=== PATIENT | female | born 1995 | race Caucasian/White ===

== ENCOUNTER 2023-08-18 13:26 | Outpatient (CLI) | payer OTHER, SELFPAY ==
[2023-08-18 13:48] LABS: Hematocrit 41.3 % (37.0-47.0); Hemoglobin 14.3 g/dL (12.0-15.0)
== END 2023-08-18 13:27 | disposition home or self-care (01) ==
LOC: ANHSURGERY 13:32
PROVIDERS: Visit Provider Student in an Organized Health Care Education/Training Program
DX: N87.9 Dysplasia of cervix uteri, unspecified (principal); Z01.818 Encounter for other preprocedural examination
CPT/HCPCS: 36415; 85014; 85018

== ENCOUNTER 2023-08-20 01:11 | Day surgery (SDC) | payer OTHER, SELFPAY ==
--- NOTE | 2023-08-17 13:13 | PC.NURSE ---
Addendum entered by Cara Roche RN 08/18/23 12:35: Surgery time is 1:30pm, not 1:00pm Original Note: Report to the Outpatient Waiting Room, entrance under the [facility] located off [facility], at time __1130 on date __08/20/23 . Planned Procedure Time: _1:00 PM . Time changes happen often and if your time is changed the preop area will call you the afternoon before. - You and your visitor will be asked to self-screen and do not enter if you have any COVID symptoms. - A mask is optional within the hospital at this time. Patients may have clear liquids (water, carbonated beverages, clear teas, apple juice) until 3 hours prior to surgery with a maximum of 20 ounces. - No food from midnight until time of surgery - Infants may have breast milk until 4 hours before surgery, formula 6 hours prior to surgery. - Children will be allowed to drink immediately following surgery. If applicable, please bring a bottle or sippy cup to assist with drinking. Juice, water, soda, and popsicles are readily available. For infants on formula, please bring formula the day of surgery. Pacifiers are allowed. Take the following medications with a SIP of water the morning of surgery: ____NONE DO NOT STOP ANY OF YOUR OTHER PRESCRIPTION MEDICATIONS PRIOR TO SURGERY ?EXCEPT THE FOLLOWING Medications to discontinue per physician NONE Please no make-up, nail british, hairspray, perfume, deodorant, or body powder the day of surgery. No jewelry (including any body piercings) or valuables the day of surgery, leave them at home. Please take a shower or bath the night before, or the morning of, surgery with an antibacterial soap. Wear comfortable, loose fitting clothing. Children are encouraged to wear pajamas. - Jewelry must be removed prior to entering the operating room. Rings and piercings that are not removed may be cut off. - The hospital will not accept responsibility for valuables. - Please leave all valuables, including medications, at home the day of surgery. If you are going home after surgery, a licensed experienced truck driver must drive you home. - NO public transportation without another adult if you receive anesthesia. - We recommend that an adult stay with you for 24 hours following discharge. - We also recommend that you do not drive, make important decision, drink alcoholic beverages, or take any drugs that were not prescribed by your health care provider for at least 24 hours after your discharge time. For Pediatric surgeries, we recommend two adults accompany the child home. Follow any additional instructions given to you from your surgeon. If you or anyone in your household have experienced Covid symptoms in the past week, please notify your surgeon or the nurse liaison at the phone number below for possible testing. Telephone instructions given to _PATIENT and asked if any additional questions and then verbalized understanding. Patient advised to call surgeon office or pre surgery nurse liaison [phone] if any additional questions.
[2023-08-17 13:21] VITALS: BMI 22.2
--- NOTE | 2023-08-20 08:35 | PM.IMHP ---
H&P: HPI History of Present Illness Date/Time: 08/20/23 08:35 Chief Complaint: TRACY 2 Retained IUD Narrative: 28-year-old female who presents for LEEP. Patient's initial Pap smear came back LSIL, positive HPV.? Patient underwent colposcopy.? ECC was benign but cervical biopsy returned high-grade TRACY 2. Patient also currently has IUD in place. Patient is requesting IUD removal. Removal was attempted in office but was unsuccessful. Will plan for hysteroscopic removal of IUD at the time of LEEP. Review of Systems Cardiovascular: Cardiovascular: Denies chest pain, Denies leg edema, Denies palpitations, Denies dyspnea and Denies dyspnea on exertion Respiratory: Respiratory: Denies cough, Denies dyspnea and Denies dyspnea on exertion Gastrointestinal: Gastrointestinal: Denies abdominal pain, Denies constipation, Denies diarrhea, Denies nausea and Denies vomiting Genitourinary: Genitourinary: Denies hematuria, Denies urinary frequency, Denies dysuria, Denies pelvic pain, Denies urinary incontinence and Denies vaginal discharge Neurologic: Reports system reviewed and no additional complaints, except as documented Psychiatric: Psychiatric: Reports no additional psychiatric complaints Endocrine: Endocrine: Denies palpitations PMFSH Past Medical History Medical History (Updated 08/18/23 @ 16:11 by JUDI Galvan) Abnormal Pap smear of cervix Anemia Anxiety Bipolar 2 disorder Depression Encounter for IUD removal Surgical History Surgical History (Updated 08/18/23 @ 16:16 by JUDI Galvan) H/O colposcopy with cervical biopsy H/O gynecological procedure 09/08/17 Mirena IUD insertion History of gynecological procedure (08/18/23) mirena iud removal Family History Family History (Updated 07/14/23 @ 16:21 by Abi Mckinnon MA) Father Cerebrovascular accident Mother Breast cancer Grandparent Liver cancer Esophagus cancer Social History Social History (Updated 08/10/23 @ 14:13 by Amy Roblse CMA) Smoking packs per day: 0.5 Smoking cigarettes per day: 10.0 Years smoked: 10 Smoking pack-years: 5.00 Smoking status: Former smoker Tobacco type: cigarettes Smoking end date: 07/08/23 Additional smoking assessment comments: CURRENTLY VAPS Alcohol intake: current Substance use: current Substance use type: marijuana Last use: 08/16/23 Lack of Transportation: No Lack of Food: Never True Current Housing: I Have Housing Concerned About Future Housing: No Difficulty Paying Gas/Electric Bills: No Difficulty Paying for Meds: No Currently Unemployed: No Education: High School Diploma/GED Difficulty w/ Childcare or Family Care: No Living arrangements: with family Occupation/Education: occupation Gender identity (if verbalized by the patient): Female Spiritual care concerns: No Meds Home Medications and Allergies Home Medications Medication Instructions Recorded Confirmed Type No Home Medications 08/17/23 08/18/23 History Allergies Allergy/AdvReac Type Severity Reaction Status Date / Time amoxicillin Allergy Intermediate RASH Verified 08/18/23 16:08 Penicillins Allergy Intermediate RASH Verified 08/18/23 16:08 Exam Const: General: no acute distress Eyes: EOM: EOMs intact bilaterally Neck: Neck: supple Thyroid: thyroid normal Chest: Breast/axilla inspection: normal inspection of the breasts Breast/axilla palpation: normal palpation of the breasts, normal palpation of the axillae and no axillary lymphadenopathy Resp: Effort & Inspection: normal respiratory effort Auscultation: clear to auscultation bilaterally Cardio: Rate: regular rate Rhythm: regular rhythm GI: Inspection: non-distended GI Palp: Yes Soft to palpation, No Tenderness to palpation present (GI) and No Guarding due to palpation present (GI) Auscultation: normal bowel sounds : General: No bladder normal to palpation External Female Exam: normal exte
--- NOTE | 2023-08-20 08:38 | WPDHPUPDATE1 ---
History and Physical Update Update Date/Time: 08/20/23 08:38 History and Physical has been reviewed, including an updated exam of the patient. There are NO changes in the patient's condition. Risks, benefits, and alternatives have been discussed and questions answered. Patient agrees to proceed with procedure.
[2023-08-20] MEDS: ACETAMINOPHEN 500 MG TABLET 1000 MG PO (11:55)
[2023-08-20 12:08] VITALS: BP 119/86; PULSE 85; RESP 16; TEMP 37.7; O2SAT 99
[2023-08-20] MEDS: LACTATED RINGERS 1,000 ML 30 ML IV CONT (12:11)
--- NOTE | 2023-08-20 12:13 | WPDANESEPPF ---
Anes - Initial Pre Proc Eval Procedure: Operation Date: 08/20/23 13:30 Proposed Procedures p Loop Electrical Excision Procedure - Joo Do MD s Hysteroscopy with Intrauterine Device Removal - Joo Do MD Date/Time: 08/20/23 12:13 Surgeon: Joo Do MD Pre Op Diagnosis: cervical dysplasia, Retained IUD Patient Data Age: 28 Gender: F Height: 1.5 m Weight: 48.5 kg Last Vital Signs Temp 99.9 F H 08/20/23 12:08 Pulse 85 08/20/23 12:08 Resp 16 08/20/23 12:08 BP 119/86 08/20/23 12:08 Pulse Ox 99 08/20/23 12:08 O2 Del Method Room Air 08/20/23 12:08 Allergies Allergy/AdvReac Type Severity Reaction Status Date / Time amoxicillin Allergy Intermediate RASH Verified 08/20/23 12:12 Penicillins Allergy Intermediate RASH Verified 08/20/23 12:12 Home Medications Medication Instructions Recorded Confirmed Type No Home Medications 08/17/23 08/18/23 History Patient hx anesthesia problems: none Family hx anesthesia problems: none Results Review: All pre-operative results and documents have been reviewed as part of the pre-operative evaluation. [facility] Past Medical History Medical History (Updated 08/18/23 @ 16:11 by JUDI Galvan) Abnormal Pap smear of cervix Anemia Anxiety Bipolar 2 disorder Depression Encounter for IUD removal Surgical History Surgical History (Updated 08/18/23 @ 16:16 by JUDI Galvan) H/O colposcopy with cervical biopsy H/O gynecological procedure 09/08/17 Mirena IUD insertion History of gynecological procedure (08/18/23) mirena iud removal Family History Family History (Updated 07/14/23 @ 16:21 by Abi Mckinnon MA) Father Cerebrovascular accident Mother Breast cancer Grandparent Liver cancer Esophagus cancer Social History Social History (Updated 08/10/23 @ 14:13 by Amy Robles CMA) Smoking packs per day: 0.5 Smoking cigarettes per day: 10.0 Years smoked: 10 Smoking pack-years: 5.00 Smoking status: Former smoker Tobacco type: cigarettes Smoking end date: 07/08/23 Additional smoking assessment comments: CURRENTLY VAPS Alcohol intake: current Substance use: current Substance use type: marijuana Last use: 08/16/23 Lack of Transportation: No Lack of Food: Never True Current Housing: I Have Housing Concerned About Future Housing: No Difficulty Paying Gas/Electric Bills: No Difficulty Paying for Meds: No Currently Unemployed: No Education: High School Diploma/GED Difficulty w/ Childcare or Family Care: No Living arrangements: with family Occupation/Education: occupation Gender identity (if verbalized by the patient): Female Spiritual care concerns: No Anes - Eval Final PreProcedure Day of Procedure 08/20/23 12:13 Patient weight: normal Heart: regular rate and rhythm Lungs: clear to auscultation Airway: Mallampati scale class II Neurological: alert and oriented Last oral intake: >/= 8 hours ASA classification: II Emergent: no Anesthetic plan: proceed Anesthesia type and monitoring: general GIVS and standard monitoring Results Review: All pre-operative results and documents have been reviewed as part of the pre-operative evaluation. Informed Consent: The patient's anesthetic plan and its attendant risks and benefits were discussed with the patient/family/POA. Questions were solicited and answers provided to the satisfaction of the patient/family/POA.
[2023-08-20] MEDS: LIDO 1%/EPINEPHRINE 1:100,000 20 ML VIAL 10 ML INFILTRATE (13:23)
[2023-08-20] MEDS: FERRIC SUBSULFATE 8 ML SOLUTION WITH APPLICATOR 4 ML TOPICAL (13:30)
[2023-08-20] MEDS: IODINE/POTASSIUM IODIDE 8 ML SOLUTION 4 ML TOPICAL (13:30)
--- NOTE | 2023-08-20 13:36 | W.PM.PROC2 ---
Procedure Note - Detailed Date of Procedure 08/20/23 Pre-op Diagnosis TRACY 2, Retained IUD Post-op Diagnosis Same Procedure Performed paracervical block hysteroscopic IUD removal LEEP Surgeon Joo Do MD Anesthesia General Indications retained IUD TRACY 2 on biopsy Findings IUD strings not visualized, IUD within endometrial cavity, TRACY 2 on biopsy, Hypopigmented area of decreased lugols uptake at 1 o'clock Description of Procedure Christiano Morrissey presents for the above procedure for retained IUD and TRACY 2. She was counseled as to the indications, risks, benefits, and alternatives to surgery, with the risks including bleeding, infection, damage to surrounding organs, VTE, and complications of anesthesia. Her verbal and written consent was obtained. PROCEDURE: The patient was taken to the OR and general anesthesia induced. She was prepped and draped in Harris stirrups with support of the back and bilateral lower extremities. I/O catheterization performed of the bladder. The above findings were noted. Infiltration with 1% lidocaine with vasopressin at the 12, 3, 6, and 9 o'clock cervical positions was performed. A single tooth tenaculum was placed on the anterior lip of the cervix. Hysteroscopy, using a normal saline medium, was performed and showed the above findings. The hysteroscopic graspers were used to grasp the IUD strings under directs visualization. The IUD was removed from the endometrial cavity without difficulty. The hysteroscopic portion of the procedure was then finished. Attention was turned to LEEP procedure. An insulated speculum was placed with full visualization of the cervix. Lugol's solution was applied to the ectocervix. The LEEP setting were at 40 Pollard Cut/Coag. a 2.5 cm by 1cm loop was used for the LEEP. The anterior cervix was removed in one single pass. The specimen was marked with a single suture at the 12 o'clock position. The posterior cervical specimen was removed in one pass. 2 sutures were placed at the 6 o'clock position of the posterior specimen. The surgical bed was made hemostatic with ball cautery. Upon evaluation, there was an incidental cautery burn to the left lateral vaginal mucosa. Good hemostasis was noted. Monsel's solution was applied to the surgical bed. The patient tolerated the procedure well. Sponge, lap, and needle counts were correct. The patient was taken to the recovery room in stable condition. Estimated Blood Loss 5 Drains No Packing No Pathology Yes (anterior cervical specimen, posterior cervical specimen ) Complications No immediate complications Condition Stable Disposition PACU [facility] Billing Surgery - Charge Forward: Surgery Billing
[2023-08-20 13:37] VITALS: BP 116/53; PULSE 64; RESP 16; O2SAT 100
[2023-08-20 14:05] VITALS: BP 91/39; PULSE 74
[2023-08-20 14:25] VITALS: BP 113/66; PULSE 71
== END 2023-08-20 14:30 | disposition home or self-care (01) ==
PROVIDERS: Visit Provider Student in an Organized Health Care Education/Training Program
PROC: 0UBC7ZZ Excision of Cervix, Via Natural or Artificial Opening (ICD-10-PCS; CPT 57522; principal; 2023-08-20 13:30)
PROC: 0U5B8ZZ Destruction of Endometrium, Via Natural or Artificial Opening Endoscopic (ICD-10-PCS; CPT 58563; 2023-08-20 13:30)
DX: N87.1 Moderate cervical dysplasia (principal); Z30.432 Encounter for removal of intrauterine contraceptive device; N72 Inflammatory disease of cervix uteri; N88.8 Other specified noninflammatory disorders of cervix uteri; F31.81 Bipolar II disorder; F41.9 Anxiety disorder, unspecified; F17.290 Nicotine dependence, other tobacco product, uncomplicated; F12.90 Cannabis use, unspecified, uncomplicated
CPT/HCPCS: 57522; 58301; 88307; A9270; J2250; J2405; J2704; J3010; J7120

== ENCOUNTER 2024-01-28 12:33 | Outpatient (CLI) | payer OTHER, SELFPAY ==
--- NOTE | ~2024-01-28 | US_ITS ---
EXAMINATION: US OB limited, US OB transvaginal DATE: 01/28/2024 13:39 (accession [id number]), 01/28/2024 13:38 (accession [id number]) INDICATION: Second trimester viability assessment and cervical length measurement TECHNIQUE: Real-time ultrasound of the pelvis was performed. The interpreting radiologist was not pre sent for the study. COMPARISON: 11/25/2023 FINDINGS: There is a single living fetus in transverse lie. The placenta is anterior. cardiac a ctivity and movement are noted. heart rate is 154 beats per minute (bpm). The amniotic fl uid index is subjectively normal. The measured cervical length is 3.3 cm. IMPRESSION: 1. Single living fetus in transverse lie. 2. Measured cervical length of 3.3 cm. Reviewed, dictated and finalized at location F. IMPRESSION: 1. Single living fetus in transverse lie. 2. Measured cervical length of 3.3 cm.
== END 2024-01-28 12:34 | disposition home or self-care (01) ==
PROVIDERS: Visit Provider Obstetrics & Gynecology
DX: Z36.86 Encounter for antenatal screening for cervical length (principal)
CPT/HCPCS: 76815; 76817

== ENCOUNTER 2024-06-21 06:33 | Inpatient (IN) | payer OTHER, SELFPAY ==
[2024-06-21] VITALS (61 sets, daily range): BP systolic 100–152; BP diastolic 43–83; PULSE 61–119; RESP 14–18; TEMP 36.4–37.1; O2SAT 91–100; BMI 27.6
--- NOTE | 2024-06-21 06:57 | WPDANESEPP ---
Anes - Eval Pre Procedure Procedure: labor epidural Date/Time: 06/21/24 06:57 Surgeon: laurie Preop Diagnosis: pain during labor Pre Op Diagnosis: iol Patient Data Age: 29 Gender: F Height: Weight: Allergies Allergy/AdvReac Type Severity Reaction Status Date / Time amoxicillin Allergy Intermediate RASH Verified 06/16/24 11:02 Penicillins Allergy Intermediate RASH Verified 06/16/24 11:02 Latex, Natural Rubber Allergy Rash Verified 06/16/24 11:02 Home Medications Medication Instructions Recorded Confirmed Type docosahexaenoic acid 200 mg mg PO 04/19/24 06/16/24 History capsule ( DHA) omeprazole 20 mg capsule,delayed 20 mg PO DAILY 04/19/24 06/21/24 History release ferrous sulfate 325 mg (65 mg 325 mg PO DAILY 05/03/24 06/16/24 History iron) tablet wheat dextrin 3 gram/3.5 gram oral 1 packet PO DAILY 05/03/24 06/21/24 History powder (Best Fiber) prenat.vits,sarita,pty-emjy-ztfwe 1 tablet 06/06/24 06/16/24 History Patient hx anesthesia problems: none Family hx anesthesia problems: none Results Review: All pre-operative results and documents have been reviewed as part of the pre-operative evaluation. [facility] Past Medical History Medical History Abnormal Pap smear of cervix Anemia Anxiety Bipolar 2 disorder Depression Encounter for IUD removal Suppression of menses Surgical History Surgical History H/O colposcopy with cervical biopsy H/O gynecological procedure 09/08/17 Mirena IUD insertion H/O LEEP History of gynecological procedure (08/18/23) mirena iud removal Family History Family History Father Cerebrovascular accident Mother Breast cancer Grandparent Liver cancer Esophagus cancer Social History Social History Smoking packs per day: 0.5 Smoking cigarettes per day: 10.0 Years smoked: 10 Smoking pack-years: 5.00 Smoking status: Former smoker Tobacco type: cigarettes Second hand tobacco smoke exposure: No Smoking end date: 07/08/23 Additional smoking assessment comments: CURRENTLY VAPS Alcohol intake: never Substance use: never Substance use type: marijuana Other substance usage details: 05/17/2024occassional for appetite and mood swings Do You Feel Safe in your Home?: Yes Lack of Transportation: No Lack of Food: Never True Current Housing: I Have Housing Concerned About Future Housing: No Difficulty Paying Gas/Electric Bills: No Difficulty Paying for Meds: No Currently Unemployed: No Education: High School Diploma/GED Difficulty w/ Childcare or Family Care: No Living arrangements: with family Additional living arrangements comments: Occupation/Education: other 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
--- NOTE | 2024-06-21 06:58 | LDADM ---
This patient, Christiano Morrissey, was admitted to Labor/Delivery/Recovery 106 on 06/21/24 at 06:33. Plans for labor, pain management and were discussed with patient. Patient/family oriented to hospital policies and general routines including ID bracelet, bed and alarms, visiting hours, pain management, procedures, bathroom and other care routines, personal items, smoking policy, room service/diet and guest tray routines, security routines, and visiting hours. Patient/Family are encouraged to report perceived risks to care and to ask questions if they do not understand what they are told or what they should do. See OBIX for further documentation.
[2024-06-21 07:14] LABS: Basophils Percent Auto 0.5 % (0.2-1.2); Eosinophils Percent Auto 0.5 % (0-4.4); Hematocrit 33.5 % (37.0-47.0); Hemoglobin 11.5 g/dL (12.0-15.0); Immature Granulocyte Absolute 0.12 K/mm3 (0.00-0.031); Immature Granulocyte Percent A 1.9 % (0-0.5); Lymphocytes Absolute Auto 1.56 K/mm3 (0.9-3.2); Lymphocytes Percent Auto 24.3 % (18.3-44.2); Mean Corpuscular HGB Conc 34.3 g/dl (32-36); Mean Corpuscular Hemoglobin 33.5 pg (26-34); Mean Corpuscular Volume 97.7 fl (80-100); Mean Platelet Volume 10.9 fl (7.4-10.4); Monocytes Absolute Auto 0.6 K/mm3 (0.1-0.6); Monocytes Percent Auto 8.7 % (2.6-8.5); Neutrophils Absolute Auto 4.1 K/mm3 (1.3-6.7); Neutrophils Percent Auto 64.1 % (45.5-73.1); Platelet Count Result 176 k/mm3 (150-375); Red Blood Count 3.43 M/mm3 (4.2-5.4); Red Cell Distribution Width 13.6 % (11.5-14.5); White Blood Count 6.4 K/mm3 (4.5-10.0)
[2024-06-21] MEDS: LACTATED RINGERS 1,000 ML 125 ML IV CONT (07:24)
[2024-06-21] MEDS: OXYTOCIN 30 UNITS/NS 500 ML 30 UNITS/500 ML BAG IV CONT (07:25)
--- NOTE | 2024-06-21 07:30 | PM.IMHP ---
H&P: HPI History of Present Illness Date/Time: 06/21/24 07:20 Chief Complaint: Elective IOL Narrative: Christiano is a 29yo @ 39.0wks who presented to L&D for elective IOL. She reports good movement. Irregular contractions. No VB or LOF. She has had regular care. Her is complicated by: - H/o LEEP 08/2023-- cervical lengths - Anemia- H/H .07/07 Review of Systems Constitutional: Constitutional: Denies chills, Denies fever(s) and Denies headache(s) Eyes: Eyes: Denies change in vision ENT: Denies headache(s) Cardiovascular: Cardiovascular: Denies chest pain and Denies dyspnea Respiratory: Respiratory: Denies dyspnea Genitourinary: Genitourinary: Denies abnormal vaginal bleeding and Denies vaginal discharge Neurologic: Denies headache(s) Psychiatric: Psychiatric: Denies anxiety and Denies depression [facility] Past Medical History Medical History Abnormal Pap smear of cervix Anemia Anxiety Bipolar 2 disorder Depression Encounter for IUD removal Suppression of menses Surgical History Surgical History H/O colposcopy with cervical biopsy H/O gynecological procedure 09/08/17 Mirena IUD insertion H/O LEEP History of gynecological procedure (08/18/23) mirena iud removal Family History Family History Father Cerebrovascular accident Mother Breast cancer Grandparent Liver cancer Esophagus cancer Social History Social History Smoking packs per day: 0.5 Smoking cigarettes per day: 10.0 Years smoked: 10 Smoking pack-years: 5.00 Smoking status: Current some day smoker Tobacco type: e-cigarettes/vaping Second hand tobacco smoke exposure: Yes Smoking end date: 07/08/23 Additional smoking assessment comments: CURRENTLY VAPS Alcohol intake: never Substance use: never Substance use type: marijuana Other substance usage details: 05/17/2024occassional for appetite and mood swings Do You Feel Safe in your Home?: Yes Lack of Transportation: No Lack of Food: Never True Current Housing: I Have Housing Concerned About Future Housing: No Difficulty Paying Gas/Electric Bills: No Difficulty Paying for Meds: No Currently Unemployed: No Education: High School Diploma/GED Difficulty w/ Childcare or Family Care: No Living arrangements: with family Additional living arrangements comments: Occupation/Education: other 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 Gender identity (if verbalized by the patient): Female Sexual Orientation (if Verbalized by the Patient): Straight or Heterosexual Spiritual care concerns: No Meds Home Medications and Allergies Home Medications Medication Instructions Recorded Confirmed Type docosahexaenoic acid 200 mg 200 mg PO DAILY 04/19/24 06/21/24 History capsule ( DHA) omeprazole 20 mg capsule,delayed 20 mg PO DAILY 04/19/24 06/21/24 History release ferrous sulfate 325 mg (65 mg 325 mg PO DAILY 05/03/24 06/21/24 History iron) tablet wheat dextrin 3 gram/3.5 gram oral 1 packet PO DAILY 05/03/24 06/21/24 History powder (Best Fiber) Allergies Allergy/AdvReac Type Severity Reaction Status Date / Time amoxicillin Allergy Intermediate RASH Verified 06/16/24 11:02 Penicillins Allergy Intermediate RASH Verified 06/16/24 11:02 Latex, Natural Rubber Allergy Rash Verified 06/16/24 11:02 Vital Signs Vital Signs - 24 hr 06/21/24 06:57 06/21/24 07:02 06/21/24 08:45 Temperature 97.6 F Pulse Rate 86 90 Respiratory Rate 18 Blood Pressure 132/77 121/83 Pulse Oximetry Oxygen Delivery Room Air 06/21/24 09:00 06/21/24 09:15 06/21/24 11:12 Temperature 98 F Pulse Rate 82 84 Respiratory Rate 18 Blood Pressure 117/74 120/7
[2024-06-21 07:58] LABS: HIV 1/2 Ab P24 Ag Result Negative (Negative)
[2024-06-21] MEDS: fentaNYL CITRATE INJ (*CRX) 100 MCG/2 ML VIAL IV PUSH (11:13)
[2024-06-21 12:10] LABS: Rapid Plasma Reagin Non-Reactive (NonReactive)
--- NOTE | 2024-06-21 12:42 | PM.OBPNLAB ---
Pain Control Date/time seen: 06/21/24 12:42 Pain control: tolerating well Pelvic Exam Dilation (cm): 5 (.5) Effacement (%): 90 station: -2 Amniotic membrane status: Ruptured (AROM, clear 0725) Contractions Monitor mode: External Contraction frequency: 2 Contraction pattern: Regular Status status: Category l Assessment and Plan Pitocin rate (mU/min): 14 Plan: continuous present management
[2024-06-21] MEDS: OXYTOCIN 30 UNITS/NS 500 ML 30 UNITS/500 ML BAG 125 UNITS IV CONT (14:15)
--- NOTE | 2024-06-21 16:25 | OBPPTRN ---
Patient transferred to post room #282. Support person present. Oriented to unit, room, information board, rooming in, admission packet and security measures. Patient verbalizes understanding.
[2024-06-21] MEDS: IBUPROFEN 600 MG TABLET PO (16:29)
[2024-06-21] MEDS: ACETAMINOPHEN 325 MG TABLET 650 MG PO (16:29)
--- NOTE | 2024-06-21 16:58 | PM.OBPRVD ---
OB - Vaginal Delivery Note Procedure Delivery date: 06/21/24 Events: Elective Induction of Labor Induction method: Per Pitocin Protocol Delivery augmentation: Rupture of Membranes Delivery monitor: External FHT and External Uterine Route of delivery: Episiotomy description: None Laceration Description: None Specimen: No Quantitative Blood Loss (ml): 350 Anesthesia type: Epidural Disposition: Floor Complications: No immediate complications Baby Date of : 06/21/24 Time of : 13:47 Gestational Age by Date: 39 Infant gender: Male Weight (pounds): 7 Weight (ounces): 5 presentation: vertex Placenta delivery description: Expressed Cord Vessel Description: 3 Vessels, Nuchal Cord and Delayed Cord Clamping score one minute: 8 score five minutes: 9 Narrative: Christiano attempted to get an epidural, but it was not fully working. She endorsed significant vaginal pressure and was found to be completely dilated. She pushed for approximately 3 contractions with good maternal effort and delivered the head over intact perineum. Nuchal cord was noted but delivered through. She easily delivered the infants shoulders and body without complication. He was immediately placed skin to skin and after stimulation and bulb suctioning of his mouth, cry was heard. Delayed cord clamping was performed. The umbilical cord was doubly clamped and then cut. A segment of the cord was collected for cord gases. The remaining cord blood was collected for typing. With pitocin running and gentle traction on the cord, the placenta delivered without complication. Fundal massage reveled a firm fundus and minimal bleeding was noted. She was examined and no lacerations were identified. Good uterine tone with minimal bleeding was noted. Her bladder was drained at the end, as her catheter was not able to be placed after epidural before delivering; straight catheterization of approximately 150cc of urine was noted. Sponge, lap, instrument, and needle counts were correct at the end of the procedure. Mom and baby were left bonding in the birthing suite in a stable condition.
[2024-06-21] MEDS: DOCUSATE SODIUM 100 MG CAPSULE PO (19:06)
[2024-06-22] MEDS: ACETAMINOPHEN 325 MG TABLET 650 MG PO ×3 (03:05→21:41)
[2024-06-22] MEDS: IBUPROFEN 600 MG TABLET PO ×3 (03:05→21:41)
[2024-06-22 05:11] LABS: Hematocrit 23.5 % (37.0-47.0); Hemoglobin 7.9 g/dL (12.0-15.0); Mean Corpuscular HGB Conc 33.6 g/dl (32-36); Mean Corpuscular Hemoglobin 33.3 pg (26-34); Mean Corpuscular Volume 99.2 fl (80-100); Mean Platelet Volume 11.1 fl (7.4-10.4); Platelet Count Result 147 k/mm3 (150-375); Red Blood Count 2.37 M/mm3 (4.2-5.4); Red Cell Distribution Width 13.6 % (11.5-14.5); White Blood Count 7.5 K/mm3 (4.5-10.0)
--- NOTE | 2024-06-22 06:54 | P.PNOB_ITS ---
OB - PN: Subj Subjective Date/time seen: 06/22/24 07:27 Narrative: PPD#1 Chrsitiano reports doing well today. 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 Her pain is controlled. She is tolerating regular diet, voiding, passing gas, and ambulating without issues. She is bottle feeding. She would like her son circumcised. OB - PN: Obj Data Labs 06/22/24 04:24 Labs: Laboratory Results - last 24 hr 06/21/24 06:51 WBC 6.4 RBC 3.43 L Hgb 11.5 L Hct 33.5 L MCV 97.7 MCH 33.5 MCHC 34.3 RDW 13.6 Plt Count 176 MPV 10.9 H Immature Gran % (Auto) 1.9 H Neut % (Auto) 64.1 Lymph % (Auto) 24.3 Hawkins % (Auto) 8.7 H Eos % (Auto) 0.5 Baso % (Auto) 0.5 Lymph # (Auto) 1.56 Hawkins # (Auto) 0.6 Eos # (Auto) 0.0 Baso # (Auto) 0.0 Abs Immat Gran (auto) 0.12 H Absolute Neuts (auto) 4.1 Absolute Nucleated RBC 0.000 Nucleated RBC % 0.0 RPR Non-reactive HIV 1&2 Ab/P24 Ag 4thGn Negative Blood Type A Positive Antibody Screen Negative OB - PN A/P Assessment and Plan (1) Normal vaginal delivery of fourth : Code(s): O80 - Encounter for full-term uncomplicated delivery Status: Acute Plan day: 1 Plan: routine care Comments: - Venofer 400mg IV once - PO pain meds - Regular diet - Ambulation and hydration encouraged - Continue putting baby to breast q2-3hr - Pelvic rest; take meds as prescribed - ER return precautions: fever, n/v/abd pain, bleeding, HTN Time Spent With Patient Time: Total time spent is greater than 50% in coordination of care (as documented) at patient's floor/unit and/or counseling patient: Review of Systems Constitutional: Constitutional: Denies chills, Denies fever(s) and Denies headache(s) Eyes: Eyes: Denies change in vision ENT: Denies dizziness and Denies headache(s) Cardiovascular: Cardiovascular: Denies chest pain, Denies palpitations and Denies dyspnea Respiratory: Respiratory: Denies cough and Denies dyspnea Gastrointestinal: Gastrointestinal: Denies nausea and Denies vomiting Neurologic: Denies dizziness and Denies headache(s) Endocrine: Endocrine: Denies palpitations Exam Const: General: cooperative, healthy appearing, comfortable and no acute distress Orientation/consciousness: patient oriented x3 Resp: Effort & Inspection: normal respiratory effort Auscultation: clear to auscultation bilaterally Cardio: Rate: regular rate GI: Inspection: non-distended GI Palp: No abdominal tenderness and Yes Soft to palpation Auscultation: normal bowel sounds : Other: fundus firm Skin: General skin exam: normal color Neuro: General: patient oriented x3 Extrem: General: normal to inspection Psych: Appearance: grossly normal Affect: normal affect Attitude: cooperative
[2024-06-22] MEDS: MULTIVIT/MIN/PREN/FOL AC/IRON TABLET 1 TAB PO (07:31)
[2024-06-22] MEDS: POLYSACCHARIDE IRON COMPLEX 150 MG CAPSULE PO ×2 (07:31→17:20)
[2024-06-22] MEDS: DOCUSATE SODIUM 100 MG CAPSULE PO (07:36)
[2024-06-22 08:15] VITALS: BP 119/78; PULSE 77; RESP 16; TEMP 36.4; O2SAT 100
[2024-06-22] MEDS: IRON SUCROSE COMPLEX 400 MG in SODIUM CHLORIDE 0.9% IV 250 ML 108 MG IVPB (08:25)
[2024-06-22] MEDS: PANTOPRAZOLE 40 MG TABLET PO (08:47)
[2024-06-22 12:39] VITALS: BP 122/67; PULSE 83; RESP 16; TEMP 36.4; O2SAT 100
[2024-06-22 18:35] VITALS: BP 112/74; PULSE 73; RESP 12; TEMP 36.7; O2SAT 100
--- NOTE | 2024-06-23 07:44 | PC.NURSE ---
Patient transferred to post room #280 via wheelchair. Support person present. Oriented to unit, room, information board, rooming in, admission packet and security measures. Patient verbalizes understanding.
[2024-06-23 08:05] VITALS: BP 142/88; PULSE 81; RESP 16; TEMP 36.7; O2SAT 100
[2024-06-23] MEDS: PANTOPRAZOLE 40 MG TABLET PO (08:12)
[2024-06-23] MEDS: POLYSACCHARIDE IRON COMPLEX 150 MG CAPSULE PO (08:12)
[2024-06-23] MEDS: MULTIVIT/MIN/PREN/FOL AC/IRON TABLET 1 TAB PO (08:12)
--- NOTE | 2024-06-23 08:12 | PM.OBDSVD ---
DS: Admitting Diagnosis Discharge Date 06/23/24 Admitting Diagnosis Elective induction of labor DS: Discharge Diagnosis Discharge Diagnosis (1) Normal vaginal delivery of fourth : Code(s): O80 - Encounter for full-term uncomplicated delivery Status: Acute (2) Anemia: Code(s): D64.9 - Anemia, unspecified Status: Acute OB - DS: Summary OB Procedures : Ultrasound OB Procedures Intrapartum: Spontaneous Vag Delivery OB Procedures: : Other (venofer 400mg IV once) Peripartum Data Delivery Method: Natural Vaginal Laceration Description: None Episiotomy description: None complications: none 1: Gender: Male Disposition of : home Status at Discharge Functional status at discharge: independent ambulation Overall status at discharge: patient is back to baseline Time Spent with Patient Time attestation: Total time spent providing and/or coordinating discharge services: Exam Const: General: cooperative, healthy appearing, comfortable and no acute distress Orientation/consciousness: patient oriented x3 Resp: Effort & Inspection: normal respiratory effort Auscultation: clear to auscultation bilaterally Cardio: Rate: regular rate GI: Inspection: non-distended GI Palp: No abdominal tenderness and Yes Soft to palpation Auscultation: normal bowel sounds : Other: fundus firm Skin: General skin exam: normal color Neuro: General: patient oriented x3 Extrem: General: normal to inspection Psych: Appearance: grossly normal Affect: normal affect Attitude: cooperative DS: Data Data Completed and Pending Labs on day of discharge: Labs from last 24 hours 06/22/24 04:24 WBC 7.5 RBC 2.37 L Hgb 7.9 L D Hct 23.5 L MCV 99.2 MCH 33.3 MCHC 33.6 RDW 13.6 Plt Count 147 L MPV 11.1 H Discharge Plan Discharge Attending physician on discharge: Roma Zhao Discharging Clinician: Roma Zhao Patient Disposition: Home, Self-Care Activity: may shower and pelvic rest Diet: regular Patient Instructions: Vaginal Delivery (DC) Stand Alone Forms: General Discharge Information, Work/School Release IP Follow-up/Referrals: Roma Zhao MD [Physician] - 4 Weeks Discharge Medications: New acetaminophen 500 mg tablet 1,000 mg PO TID Qty: 60 0RF docusate sodium [Colace] 100 mg capsule 100 mg PO BID Qty: 90 0RF ibuprofen 800 mg tablet 800 mg PO TID Qty: 30 0RF Continued DHA 200 mg capsule 200 mg PO DAILY omeprazole 20 mg capsule,delayed release(DR/EC) 20 mg PO DAILY ferrous sulfate 325 mg (65 mg iron) tablet 325 mg PO DAILY Best Fiber 3 gram/3.5 gram powder 1 packet PO DAILY Rx Instructions: mix into at least 4 oz water or juice before administering Date of admission: 06/21/24 06:33 Primary Care Provider: BREANA,Healthcare Admitting Provider: Roma Zhao Attending physician on admission: Roma Zhao Condition: Stable
[2024-06-23] MEDS: DOCUSATE SODIUM 100 MG CAPSULE PO (08:13)
[2024-06-23] MEDS: IBUPROFEN 600 MG TABLET PO (08:13)
--- NOTE | 2024-06-23 09:23 | PC.NURSE ---
Patient instructed on viewing the discharge video Mother & Baby Care, The First Two Weeks . Patient was given the opportunity and encouraged to ask questions. Patient verbalized understanding of information shared and has been given the mother/baby guide for home reference.
[2024-06-24 11:22] VITALS: BP 127/69; PULSE 80; RESP 18; TEMP 37; O2SAT 100
== END 2024-06-23 11:30 | disposition home or self-care (01) | DRG 560 ==
LOC: ANHLDR 14:56 → ANHOB2 16:47
PROVIDERS: Admitting Provider Obstetrics & Gynecology; Visit Provider Obstetrics & Gynecology
DX: O99.02 Anemia complicating childbirth (principal); D64.9 Anemia, unspecified; O99.334 Smoking (tobacco) complicating childbirth; F17.290 Nicotine dependence, other tobacco product, uncomplicated; O69.81X0 Labor and delivery complicated by cord around neck, without compression, not applicable or unspecified; Z3A.39 39 weeks gestation of pregnancy; Z37.0 Single live birth
CPT/HCPCS: 36415; 85025; 85027; 86592; 86703; 86850; 86900; 86901; A9270; G0432; J1756; J2590; J2795; J3010; J7050; J7120